=== PATIENT | female | born 1980 | race Asian ===

== ENCOUNTER 2017-05-06 15:02 | Outpatient (CLI) | payer OTHER, MEDICAID ==
[~2017-05-06] VITALS: Ht 170.2 cm; Wt 60.9 kg
== END 2017-05-06 16:36 | disposition home or self-care (01) ==
LOC: LDOP 15:02
PROVIDERS: ATTEND Obstetrics & Gynecology Female Pelvic Medicine and Reconstructive Surgery
DX: O26.853 Spotting complicating pregnancy, third trimester (principal); Z3A.39 39 weeks gestation of pregnancy
CPT/HCPCS: 59025; 99201; G0463

== ENCOUNTER 2017-05-07 05:55 | Outpatient (CLI) | payer OTHER, MEDICAID ==
[~2017-05-07] VITALS: Ht 170.2 cm; Wt 61.0 kg
== END 2017-05-07 08:00 | disposition home or self-care (01) ==
LOC: LDOP 05:55
PROVIDERS: ATTEND Obstetrics & Gynecology Female Pelvic Medicine and Reconstructive Surgery
DX: O46.93 Antepartum hemorrhage, unspecified, third trimester (principal); O26.893 Other specified pregnancy related conditions, third trimester; R10.9 Unspecified abdominal pain; Z3A.38 38 weeks gestation of pregnancy
CPT/HCPCS: 59025; 99211; G0463

== ENCOUNTER 2017-05-09 05:11 | Inpatient (IN) | payer OTHER, MEDICAID ==
[~2017-05-09] VITALS: Ht 170.2 cm; Wt 60.4 kg
[2017-05-09] MEDS ORDERED: OXYTOCIN 30U/ 0.9% NaCL 500ML 500 ML IV ONE (05:12)
[2017-05-09] MEDS ORDERED: D5%-LACTATED RINGERS 1,000 ML IV SCH (05:12)
[2017-05-09] MEDS ORDERED: OXYTOCIN 30U/ 0.9% NaCL 500ML 500 ML IV PRN (05:12)
[2017-05-09] MEDS ORDERED: LACTATED RINGERS 1,000 ML IV SCH (05:12)
[2017-05-09] MEDS ORDERED: LIDOCAINE 1%, 20ML ONE (05:20)
[2017-05-09] MEDS ORDERED: OXYTOCIN 30U/ 0.9% NaCL 500ML 500 ML ONE (05:20)
[2017-05-09] MEDS ORDERED: MISOPROSTOL 200 MCG TABLET ONE (05:20)
[2017-05-09] MEDS ORDERED: NEWBORN KIT ONE (05:20)
[2017-05-09 05:24] VITALS: BP 126/87
[2017-05-09] MEDS ORDERED: CALCIUM CARBONATE 500 MG TAB.CHEW PO PRN (05:30)
[2017-05-09] MEDS ORDERED: FENTANYL PF 100 MCG/2ML IV PRN (05:30)
[2017-05-09] MEDS ORDERED: ONDANSETRON 2MG/ML, 2ML IVPush PRN (05:30)
[2017-05-09] MEDS ORDERED: TERBUTALINE 1 MG/ML, 1ML SQ PRN (05:30)
[2017-05-09] MEDS ORDERED: TERBUTALINE 1 MG/ML, 1ML IVPush PRN ×2 (05:30)
[2017-05-09] MEDS ORDERED: FENTANYL PF 100 MCG/2ML IVPush PRN (05:30)
[2017-05-09] MEDS ORDERED: PREN-3 PO (05:33)
[2017-05-09] MEDS ORDERED: IRON1TAB60 PO (05:34)
[2017-05-09 05:47] LABS: BASOPHILS # (AUTO) 0.03 x10^3/uL (0-0.1); BASOPHILS % (AUTO) 0 % (0-1); EOSINOPHILS # (AUTO) 0.08 x10^3/uL (0-0.4); EOSINOPHILS % (AUTO) 1 % (1-7); LYMPHOCYTES # (AUTO) 1.17 x10^3/uL (1-3.4); LYMPHOCYTES % (AUTO) 14 % (22-44); MD NO; MEAN CORPUSCULAR HEMOGLOBIN 33.1 pg (27.0-34.8); MEAN CORPUSCULAR HGB CONC 33.9 g/dL (32.4-35.8); MEAN CORPUSCULAR VOLUME 97.6 fL (80-100); MEAN PLATELET VOLUME 9.1 fL (7.4-10.4); MONOCYTES # (AUTO) 0.79 x10^3/uL (0.2-0.8); MONOCYTES % (AUTO) 10 % (2-9); NEUTROPHILS # (AUTO) 6.14 x10^3/uL (1.8-6.8); NEUTROPHILS % (AUTO) 75 % (42-75); PLATELET COUNT 189 x10^3/uL (130-400); RED CELL DISTRIBUTION WIDTH 13.7 % (9.6-15.2)
[2017-05-09] MEDS ORDERED: FENTANYL PF 100 MCG/2ML ONE ×2 (08:51→10:12)
[2017-05-09] MEDS: OXYTOCIN 30U/ 0.9% NaCL 500ML 500 ML IV SCH ×2 (11:47→21:47)
[2017-05-09] MEDS ORDERED: IBUPROFEN 600 MG TABLET ONE (11:52)
[2017-05-09] MEDS: IBUPROFEN 600 MG TABLET PO PRN ×2 (11:54→18:01)
[2017-05-09] MEDS ORDERED: OXYcodone/APAP 5/325MG TABLET PO PRN ×2 (12:00)
[2017-05-09] MEDS ORDERED: DIPH,PERTUSS(ACELL),TET VAC/PF NC IM-VACC PRN (12:00)
[2017-05-09 12:45] VITALS: BP 132/81
[2017-05-09 17:00] VITALS: BP 129/85
[2017-05-09 18:32] LABS: BASOPHILS # (AUTO) 0.01 x10^3/uL (0-0.1); BASOPHILS % (AUTO) 0 % (0-1); EOSINOPHILS % (AUTO) 0 % (1-7); LYMPHOCYTES # (AUTO) 0.83 x10^3/uL (1-3.4); LYMPHOCYTES % (AUTO) 5 % (22-44); MD NO; MEAN CORPUSCULAR HEMOGLOBIN 32.8 pg (27.0-34.8); MEAN CORPUSCULAR HGB CONC 33.7 g/dL (32.4-35.8); MEAN CORPUSCULAR VOLUME 97.2 fL (80-100); MEAN PLATELET VOLUME 9.1 fL (7.4-10.4); MONOCYTES # (AUTO) 1.43 x10^3/uL (0.2-0.8); MONOCYTES % (AUTO) 9 % (2-9); NEUTROPHILS % (AUTO) 85 % (42-75); PLATELET COUNT 203 x10^3/uL (130-400); RED BLOOD COUNT 4.24 x10^6/uL (3.82-5.3); RED CELL DISTRIBUTION WIDTH 13.4 % (9.6-15.2)
[2017-05-09 20:40] VITALS: BP 122/79
[2017-05-10] MEDS: DOCUSATE 100 MG CAPSULE PO PRN ×3 (00:13→18:57)
[2017-05-10] MEDS: IBUPROFEN 600 MG TABLET PO PRN ×3 (00:13→18:57)
[2017-05-10 00:15] VITALS: BP 109/79
[2017-05-10 04:50] VITALS: BP 126/84
[2017-05-10 07:30] VITALS: BP 107/73
[2017-05-10] MEDS: OXYTOCIN 30U/ 0.9% NaCL 500ML 500 ML IV SCH ×2 (07:47→17:47)
[2017-05-10] MEDS ORDERED: PRENATAL VIT/IRON/FA 1 EACH TABLET PO SCH (09:00)
[2017-05-10 19:25] VITALS: BP 122/81
[2017-05-11] MEDS: IBUPROFEN 600 MG TABLET PO PRN (00:52)
[2017-05-11] MEDS: OXYTOCIN 30U/ 0.9% NaCL 500ML 500 ML IV SCH (03:47)
[2017-05-11 07:00] VITALS: BP 114/76
[2017-05-11] MEDS ORDERED: IBUP-1222 PO (07:34)
== END 2017-05-11 08:55 | disposition home or self-care (01) | DRG 775 ==
LOC: LDIP 05:11 → 2NW 12:30
PROVIDERS: ADMIT Obstetrics & Gynecology Female Pelvic Medicine and Reconstructive Surgery; ATTEND Obstetrics & Gynecology Female Pelvic Medicine and Reconstructive Surgery
PROC: 10E0XZZ Delivery of Products of Conception, External Approach (ICD-10-PCS; principal; 2017-05-09)
PROC: 0HQ9XZZ Repair Perineum Skin, External Approach (ICD-10-PCS; 2017-05-09)
PROC: 10907ZC Drainage of Amniotic Fluid, Therapeutic from Products of Conception, Via Natural or Artificial Opening (ICD-10-PCS; 2017-05-09)
DX: O36.8130 Decreased fetal movements, third trimester, not applicable or unspecified (principal); Z37.0 Single live birth; O70.0 First degree perineal laceration during delivery; Z3A.39 39 weeks gestation of pregnancy
CPT/HCPCS: 36415; 85025; 86850; 86900; J3010; J2590; J7120

== ENCOUNTER 2017-05-15 04:49 | Emergency (ER) | payer OTHER, MEDICAID ==
[~2017-05-15] VITALS: Ht 170.2 cm; Wt 55.9 kg
[~2017-05-15 04:49] MED LIST: IBUP-1222 PO; IRON1TAB60 PO; PREN-3 PO
[2017-05-15] MEDS ORDERED: SODIUM CHLORIDE 0.9% 1,000ML IVBOLUS ONE (05:30)
[2017-05-15] MEDS ORDERED: SODIUM CHLORIDE FLUSH 10ML SYR IVF ONE (05:30)
[2017-05-15 06:03] LABS: CHLORIDE 108 mmol/L (98-107)
[2017-05-15 06:06] LABS: BASOPHILS # (AUTO) 0.02 x10^3/uL (0-0.1); BASOPHILS % (AUTO) 0 % (0-1); EOSINOPHILS # (AUTO) 0.09 x10^3/uL (0-0.4); EOSINOPHILS % (AUTO) 1 % (1-7); LYMPHOCYTES # (AUTO) 0.74 x10^3/uL (1-3.4); LYMPHOCYTES % (AUTO) 8 % (22-44); MD NO; MEAN CORPUSCULAR HEMOGLOBIN 32.7 pg (27.0-34.8); MEAN CORPUSCULAR HGB CONC 33.5 g/dL (32.4-35.8); MEAN CORPUSCULAR VOLUME 97.6 fL (80-100); MEAN PLATELET VOLUME 8.6 fL (7.4-10.4); MONOCYTES # (AUTO) 0.59 x10^3/uL (0.2-0.8); MONOCYTES % (AUTO) 7 % (2-9); NEUTROPHILS # (AUTO) 7.44 x10^3/uL (1.8-6.8); NEUTROPHILS % (AUTO) 84 % (42-75); PLATELET COUNT 225 x10^3/uL (130-400); RED BLOOD COUNT 3.72 x10^6/uL (3.82-5.3); RED CELL DISTRIBUTION WIDTH 13.3 % (9.6-15.2)
[2017-05-15 06:07] LABS: ALBUMIN 2.8 g/dL (3.4-5.0); ANION GAP 9 mmol/L (5-15); CREATININE 0.66 mg/dL (0.55-1.02)
[2017-05-15 06:52] LABS: MICROSCOPIC INDICATED
[2017-05-15 06:59] LABS: CULTURE INDICATED? NO
[2017-05-15 08:14] VITALS: BP 114/72
== END 2017-05-15 08:16 | disposition home or self-care (01) ==
LOC: ED 06:46
DX: N92.0 Excessive and frequent menstruation with regular cycle (principal)
CPT/HCPCS: 36415; 76856; 80048; 81001; 82040; 85025; 93005; 96360; 96361; 99285; J7030

== ENCOUNTER 2017-05-15 11:28 | Inpatient (IN) | payer OTHER, MEDICAID ==
[2017-05-15] VITALS (8 sets, daily range): BP systolic 95–120; BP diastolic 65–81
[~2017-05-15] VITALS: Ht 170.2 cm; Wt 60.2 kg
[2017-05-15] MEDS ORDERED: SODIUM CHLORIDE 0.9% 1,000 ML IV ONE (11:59)
[2017-05-15] MEDS ORDERED: SODIUM CHLORIDE 0.9% 1,000ML IVBOLUS ONE (12:00)
[2017-05-15] MEDS ORDERED: SODIUM CHLORIDE FLUSH 10ML SYR IVF ONE (12:00)
[2017-05-15 12:21] LABS: BASOPHILS # (AUTO) 0.02 x10^3/uL (0-0.1); BASOPHILS % (AUTO) 0 % (0-1); EOSINOPHILS % (AUTO) 1 % (1-7); LYMPHOCYTES % (AUTO) 17 % (22-44); MD NO; MEAN CORPUSCULAR HEMOGLOBIN 33.3 pg (27.0-34.8); MEAN CORPUSCULAR VOLUME 97.9 fL (80-100); MEAN PLATELET VOLUME 8.4 fL (7.4-10.4); MONOCYTES # (AUTO) 0.71 x10^3/uL (0.2-0.8); MONOCYTES % (AUTO) 7 % (2-9); NEUTROPHILS # (AUTO) 7.36 x10^3/uL (1.8-6.8); NEUTROPHILS % (AUTO) 74 % (42-75); PLATELET COUNT 239 x10^3/uL (130-400); RED BLOOD COUNT 3.02 x10^6/uL (3.82-5.3); RED CELL DISTRIBUTION WIDTH 13.2 % (9.6-15.2)
[2017-05-15] MEDS ORDERED: D5%-0.45NACL+KCL 20MEQ 1,000 ML IV ONE (13:42)
[2017-05-15] MEDS ORDERED: SODIUM CHLORIDE FLUSH 10ML SYR IVF PRN (14:00)
[2017-05-15] MEDS ORDERED: ONDANSETRON ODT 4 MG PO PRN (16:00)
[2017-05-15] MEDS ORDERED: IBUPROFEN 200 MG TABLET PO PRN (16:00)
[2017-05-15] MEDS ORDERED: LACTATED RINGERS 1,000 ML IVBOLUS ONE (16:00)
[2017-05-15] MEDS ORDERED: ONDANSETRON 2MG/ML, 2ML IVPush PRN (16:00)
[2017-05-15 16:08] LABS: INTERNATIONAL NORMALIZED RATIO 0.98 (0.93-1.1); PROTHROMBIN TIME 10.1 Seconds (9.6-11.5)
[2017-05-16 01:43] VITALS: BP 125/84
[2017-05-16 05:47] LABS: CHLORIDE 115 mmol/L (98-107)
[2017-05-16 05:52] LABS: ANION GAP 8 mmol/L (5-15); CALCIUM 7.5 mg/dL (8.5-10.1)
[2017-05-16 06:23] LABS: MEAN CORPUSCULAR HEMOGLOBIN 32.4 pg (27.0-34.8); MEAN CORPUSCULAR HGB CONC 34.5 g/dL (32.4-35.8); MEAN CORPUSCULAR VOLUME 93.8 fL (80-100); MEAN PLATELET VOLUME 8.3 fL (7.4-10.4); PLATELET COUNT 176 x10^3/uL (130-400); RED BLOOD COUNT 2.95 x10^6/uL (3.82-5.3); RED CELL DISTRIBUTION WIDTH 15.4 % (9.6-15.2)
[2017-05-16 07:05] LABS: BASOPHILS # (AUTO) 0.02 x10^3/uL (0-0.1); BASOPHILS % (AUTO) 0 % (0-1); EOSINOPHILS # (AUTO) 0.08 x10^3/uL (0-0.4); EOSINOPHILS % (AUTO) 2 % (1-7); LYMPHOCYTES # (AUTO) 1.16 x10^3/uL (1-3.4); LYMPHOCYTES % (AUTO) 21 % (22-44); MD SCAN; MONOCYTES # (AUTO) 0.51 x10^3/uL (0.2-0.8); MONOCYTES % (AUTO) 9 % (2-9); NEUTROPHILS # (AUTO) 3.77 x10^3/uL (1.8-6.8); NEUTROPHILS % (AUTO) 68 % (42-75)
[2017-05-16 07:29] VITALS: BP 111/76
[2017-05-16] MEDS: PRENATAL VIT/IRON/FA 1 EACH TABLET PO SCH (09:57)
[2017-05-16] MEDS: DOCUSATE 100 MG CAPSULE PO SCH (13:29)
[2017-05-16] MEDS: ACETAMINOPHEN 325 MG TABLET PO PRN ×2 (13:30→21:18)
[2017-05-16 14:20] VITALS: BP 126/77
[2017-05-16 20:18] VITALS: BP 116/79
[2017-05-16 20:20] VITALS: BP 112/72
[2017-05-16 20:22] VITALS: BP 124/87
[2017-05-17 04:30] VITALS: BP 129/83
[2017-05-17] MEDS: ACETAMINOPHEN 325 MG TABLET PO PRN (04:42)
[2017-05-17 05:15] LABS: BASOPHILS # (AUTO) 0.03 x10^3/uL (0-0.1); BASOPHILS % (AUTO) 0 % (0-1); EOSINOPHILS # (AUTO) 0.23 x10^3/uL (0-0.4); EOSINOPHILS % (AUTO) 3 % (1-7); LYMPHOCYTES # (AUTO) 1.28 x10^3/uL (1-3.4); LYMPHOCYTES % (AUTO) 16 % (22-44); MD NO; MEAN CORPUSCULAR HEMOGLOBIN 32.2 pg (27.0-34.8); MEAN CORPUSCULAR HGB CONC 34.5 g/dL (32.4-35.8); MEAN CORPUSCULAR VOLUME 93.4 fL (80-100); MONOCYTES # (AUTO) 0.72 x10^3/uL (0.2-0.8); MONOCYTES % (AUTO) 9 % (2-9); NEUTROPHILS # (AUTO) 5.82 x10^3/uL (1.8-6.8); NEUTROPHILS % (AUTO) 72 % (42-75); PLATELET COUNT 194 x10^3/uL (130-400); RED CELL DISTRIBUTION WIDTH 14.9 % (9.6-15.2)
[2017-05-17 05:18] LABS: ANION GAP 7 mmol/L (5-15); CALCIUM 7.6 mg/dL (8.5-10.1); CHLORIDE 111 mmol/L (98-107)
[2017-05-17 05:21] LABS: CREATININE 0.67 mg/dL (0.55-1.02)
[2017-05-17 07:35] VITALS: BP 123/87
[2017-05-17] MEDS: PRENATAL VIT/IRON/FA 1 EACH TABLET PO SCH (09:50)
[2017-05-17] MEDS: DOCUSATE 100 MG CAPSULE PO SCH (09:50)
[2017-05-17 14:10] VITALS: BP 111/76
== END 2017-05-17 16:45 | disposition home or self-care (01) | DRG 774 ==
LOC: ED 13:16 → EDIP 13:42 → 5SO 17:06 → DCLOUNGE 05-17 16:28
PROVIDERS: ADMIT Obstetrics & Gynecology; ATTEND Family Medicine
PROC: 30233N1 Transfusion of Nonautologous Red Blood Cells into Peripheral Vein, Percutaneous Approach (ICD-10-PCS; principal; 2017-05-15)
DX: O72.1 Other immediate postpartum hemorrhage (principal); D62 Acute posthemorrhagic anemia; I95.9 Hypotension, unspecified; O99.03 Anemia complicating the puerperium; I10 Essential (primary) hypertension; R00.0 Tachycardia, unspecified
CPT/HCPCS: 36415; 36430; 80048; 83735; 84100; 85014; 85018; 85025; 85610; 86850; 86900; 86923; 96360; 96361; J7030; J7120; P9016